=== PATIENT | male | born 1975 | race Caucasian/White ===

== ENCOUNTER 2017-07-23 06:30 | Day surgery (SDC) | payer OTHER ==
[2017-07-23] MEDS ORDERED: COLACE100 MG PO (12:05)
[2017-07-23] MEDS ORDERED: PERCOCET 5-3251 EACH PO (12:05)
== END 2017-07-23 13:30 | disposition home or self-care (01) ==
LOC: CIR.AMB 06:30
DX: K64.4 Residual hemorrhoidal skin tags (principal); A63.0 Anogenital (venereal) warts; K62.89 Other specified diseases of anus and rectum

== ENCOUNTER 2017-11-08 10:38 | Outpatient (CLI) | payer OTHER ==
[~2017-11-08 10:38] MED LIST: COLACE100 MG PO; PERCOCET 5-3251 EACH PO
== END 2017-11-08 10:40 | disposition home or self-care (01) ==
LOC: SONOGRAMA 10:38
DX: M72.2 Plantar fascial fibromatosis (principal)